=== PATIENT | female | born 1960 | race Caucasian/White ===

== ENCOUNTER 2016-12-07 08:34 | Emergency (ER) | payer OTHER ==
[~2016-12-07] VITALS: Ht 157.5 cm; Wt 62.0 kg
[2016-12-07 09:07] VITALS: BP 144/84
[2016-12-07] MEDS ORDERED: ADACEL/BOOSTRIX VACCINE (DIPHTH/PERTUSS/ACELL/TETANUS)0.5ML SYR (90715) IM ONE (09:45)
== END 2016-12-07 10:09 | disposition home or self-care (01) ==
LOC: M ED 08:34
DX: S80.811A Abrasion, right lower leg, initial encounter (principal); F17.210 Nicotine dependence, cigarettes, uncomplicated; W22.8XXA Striking against or struck by other objects, initial encounter; Y92.018 Other place in single-family (private) house as the place of occurrence of the external cause; Y99.9 Unspecified external cause status; Y93.9 Activity, unspecified; Z23 Encounter for immunization

== ENCOUNTER → 2018-02-21 | Outpatient (REF) | payer OTHER, SELFPAY | LOC: M LAB REF 16:39 | DX: K11.6 Mucocele of salivary gland (principal) | CPT/HCPCS: 88304 ==

== ENCOUNTER → 2019-05-07 | Outpatient (CLI) | payer OTHER ==
--- NOTE | 2019-05-07 11:38 | REPMRS ---
Patient History The patient states she had a clinical breast exam in April 2019. Digital Mammo Screening Bilat: May 07, 2019 - Exam #: [id number] Bilateral CC and MLO view(s) were taken. Technologist: Brenda Flynn Technologist Prior study comparison: January 23, 2009, bilateral digital mammo screening bilat, performed at [facility]. FINDINGS: There are scattered fibroglandular densities. There has been no change in the appearance of the mammogram from the prior studies. There is a mild amount of scattered fibroglandular density which is fairly symmetric. There is no interval development of dominant mass, architectural distortion, or grouped microcalcification suggestive of malignancy. 3-D tomosynthesis shows no additional findings. Assessment: BI-RADS/ACR category 1 mammogram. Negative Mammogram. Recommendation Routine screening mammogram of both breasts in 1 year (for women over age 40). This patient's Lifetime Breast Cancer Risk is estimated at 8.4 %. This mammogram was interpreted with the aid of an FDA-approved computer-aided dectection system. Electronically Signed By: Dank Malin MD 05/07/19 [id number]
== END ==
LOC: M RAD 08:26
PROVIDERS: ATTEND Nurse Practitioner
DX: Z12.31 Encounter for screening mammogram for malignant neoplasm of breast (principal)

== ENCOUNTER 2024-02-23 14:31 | Emergency (ER) | payer OTHER ==
[~2024-02-23] VITALS: Ht 157.5 cm; Wt 65.1 kg
[2024-02-23 15:24] LABS: BASO # 0.2 10^3/uL (0.0-0.2); BASO % 1.3 % (0.0-1.0); EOS # 0.2 10^3/uL (0.0-0.5); EOS % 1.6 % (0.0-3.0); HEMATOCRIT 41.4 % (36.0-47.0); HEMOGLOBIN 13.5 g/dl (12.0-15.5); LYMPH # 2.3 10^3/uL (1.5-5.0); LYMPH % 15.9 % (24.0-44.0); MEAN CORPUSCULAR HEMOGLOBIN 31.9 pg (27.0-33.0); MEAN CORPUSCULAR HGB CONC 32.6 g/dl (32.0-36.5); MEAN CORPUSCULAR VOLUME 97.9 fl (80.0-96.0); MONO # 0.6 10^3/uL (0.0-0.8); NEUTROPHILS % 76.4 % (36.0-66.0); PLATELET COUNT, AUTOMATED 605 10^3/uL (150-450); RED BLOOD COUNT 4.23 10^6/uL (4.00-5.40); WHITE BLOOD COUNT 14.4 10^3/uL (4.0-10.0)
[2024-02-23 15:55] LABS: BLOOD UREA NITROGEN 20 MG/DL (9-23); CALCIUM LEVEL 9.4 MG/DL (8.3-10.6); CARBON DIOXIDE LEVEL 26 MMOL/L (20-31); CHLORIDE LEVEL 108 MMOL/L (98-107); CREATININE FOR GFR 0.83 MG/DL (0.55-1.30); GLOMERULAR FILTRATION RATE > 60.0 (>45); GLUCOSE, FASTING 135 MG/DL (74-106); POTASSIUM SERUM 3.9 MMOL/L (3.5-5.1); SODIUM LEVEL 139 MMOL/L (136-145)
[2024-02-23 16:01] LABS: FREE T4 1.23 NG/DL (0.89-1.76)
[2024-02-23 16:02] LABS: THYROID STIMULATING HORMONE 1.925 uIU/ML (0.55-4.78)
[2024-02-23 16:59] LABS: AMPHETAMINES LEVEL URINE NEGATIVE (NEGATIVE); BARBITURATES URINE NEGATIVE (NEGATIVE); BENZODIAZEPINES URINE NEGATIVE (NEGATIVE); COCAINE METABOLITE URINE NEGATIVE (NEGATIVE); METHADONE URINE NEGATIVE (NEGATIVE); OPIATES URINE NEGATIVE (NEGATIVE); PHENCYCLIDINE URINE NEGATIVE (NEGATIVE)
[2024-02-23 17:08] LABS: CANNABINOIDS URINE POSITIVE (NEGATIVE)
[2024-02-23 17:30] VITALS: BP 139/68; TEMP 97.7; O2SAT 97
== END 2024-02-23 17:42 | disposition home or self-care (01) ==
LOC: EDBD 14:31 → M ED 14:31
DX: R55 Syncope and collapse (principal); F17.210 Nicotine dependence, cigarettes, uncomplicated; F12.10 Cannabis abuse, uncomplicated

== ENCOUNTER → 2024-03-15 | Outpatient (CLI) | payer OTHER | LOC: M WUC 11:11 | PROVIDERS: ATTEND Physician Assistant | DX: R53.1 Weakness (principal); R06.02 Shortness of breath; R05.3 Chronic cough ==

== ENCOUNTER → 2025-03-18 | Outpatient (CLI) | payer OTHER ==
[~2025-03-18] MED LIST: ACET-683 PO; NAPR220C14 PO
== END ==
LOC: M WHC 11:15
PROVIDERS: ATTEND Student in an Organized Health Care Education/Training Program
DX: Z12.31 Encounter for screening mammogram for malignant neoplasm of breast (principal)

== ENCOUNTER → 2025-04-05 | Outpatient (CLI) | payer OTHER | LOC: M WHC 10:11 | PROVIDERS: ATTEND Student in an Organized Health Care Education/Training Program | DX: D75.838 Other thrombocytosis (principal); K76.89 Other specified diseases of liver ==

== ENCOUNTER → 2025-04-05 | Outpatient (CLI) | payer OTHER ==
[~2025-04-05] MED LIST changes: +ECOT81TA5 PO; +ISOVUE-370 76% 100 ML VIAL ONE
== END ==
LOC: M PLAIMG 10:11
PROVIDERS: ATTEND Student in an Organized Health Care Education/Training Program
DX: D75.839 Thrombocytosis, unspecified (principal)